=== PATIENT | male | born 1950 | race Caucasian/White ===

== ENCOUNTER 2017-07-04 20:21 | Inpatient (IN) | payer MEDICARE ==
[~2017-07-04] VITALS: Ht 193 cm; Wt 101.8 kg
[~2017-07-04 20:21] MED LIST: BUDE10.2 IH; HYDR-4064 PO; MONT10TA24 PO; combivent IH
[2017-07-04 20:59] LABS: BASOPHILS % (AUTO) 0.6 % (0.0-5.0); EOSINOPHILS % (AUTO) 1.9 % (0.0-8.0); HEMATOCRIT 36.8 % (42-54); LYMPHOCYTES % (AUTO) 13.9 % (21.0-51.0); MEAN CORPUSCULAR HEMOGLOBIN 31.6 pg (27.0-33.0); MEAN CORPUSCULAR HGB CONC 33.8 g/dL (32.0-36.0); MEAN CORPUSCULAR VOLUME 93.5 fL (79-99); MONOCYTES % (AUTO) 11.9 % (3.0-13.0); NEUTROPHILS % (AUTO) 71.7 % (40.0-77.0); PLATELET COUNT (AUTO) 306 K/uL (130-400); RED BLOOD CELL COUNT(AUTO) 3.93 MIL/uL (4.50-6.20); RED CELL DISTRIBUTION WIDTH 13.8 % (11.0-15.5); WHITE BLOOD COUNT (AUTO) 6.6 K/uL (4.8-10.8)
[2017-07-04] MEDS ORDERED: IPRATROPIUM/ALBUTEROL SULFATE 3 ML SOLUTION IH ONE (21:11)
[2017-07-04 21:12] LABS: INR 0.93 (0.85-1.15); PARTIAL THROMBOPLASTIN TIME 31.2 SEC (26.3-35.5); PROTHROMBIN TIME 9.8 SEC (9.6-11.6)
[2017-07-04 21:24] LABS: ALANINE AMINOTRANSFERASE 29 U/L (12-78); ALBUMIN 2.5 g/dL (3.5-5.0); ASPARTATE AMINOTRANSFERASE 25 U/L (10-37); BILIRUBIN,TOTAL 0.4 mg/dL (0.2-1.0); CARBON DIOXIDE 27 mmol/L (21-32); CREATINE KINASE MB < 0.5 ng/mL (0.5-3.6); CREATINE KINASE, TOTAL 45 U/L (21-232); CREATININE 0.9 mg/dL (0.5-1.5); GLOMERULAR FILTR. RATE CALC 89 mL/min (>60); GLUCOSE,RANDOM 112 mg/dL (70-105); SODIUM SERUM 125 mmol/L (136-145); TOTAL PROTEIN, SERUM 6.2 g/dL (6.0-8.3); UREA NITROGEN, BLOOD 9 mg/dL (7-18)
[2017-07-04 21:26] LABS: CHLORIDE 89 mmol/L (101-111)
[2017-07-04 21:38] LABS: B-TYPE NATRIURETIC PEPTIDE 45 pg/mL (0-100)
[2017-07-04 21:51] LABS: APPEARANCE,URINE Clear (CLEAR); BILIRUBIN,URINE Negative (NEGATIVE); COLOR,URINE Yellow (YELLOW); GLUCOSE, URINE (UA) Negative (NEGATIVE); KETONES,URINE Negative (NEGATIVE); LEUKOCYTE ESTERASE ,URINE Negative (NEGATIVE); NITRATE,URINE Negative (NEGATIVE); OCCULT BLOOD,URINE Negative (NEGATIVE); PROTEIN,URINE Negative (NEGATIVE); UROBILINOGEN,URINE 0.2 mg/dL (0.2-1.0)
[2017-07-04] MEDS ORDERED: LEVOFLOXACIN 500 MG TABLET ONE (21:59)
[2017-07-04] MEDS ORDERED: CEFTRIAXONE SODIUM 1 GM ONE (22:00)
[2017-07-04] MEDS ORDERED: LIDOCAINE HCL-MPF 1% 2ML VIAL IJ PRN (22:45)
[2017-07-04] MEDS ORDERED: POTASSIUM CHLORIDE 20MEQ/100ML 100 ML IV PRN (22:45)
[2017-07-04] MEDS ORDERED: POTASSIUM CHLORIDE 10% ELIXIR 20 MEQ/15 ML UDCUP PO PRN (22:45)
[2017-07-04] MEDS ORDERED: POTASSIUM CHLORIDE 20 MEQ ERTAB PO PRN (22:45)
[2017-07-04] MEDS ORDERED: CLONIDINE HCL 0.1 MG TABLET PO PRN (23:00)
[2017-07-04] MEDS ORDERED: ACETAMINOPHEN 325 MG TAB PO PRN ×2 (23:00)
[2017-07-04] MEDS ORDERED: NITROGLYCERIN 0.4 MG SL TAB SL PRN (23:00)
[2017-07-04] MEDS ORDERED: GUAIFENESIN-DM 200/20 MG 10 ML PO PRN (23:00)
[2017-07-05] MEDS ORDERED: IPRATROPIUM/ALBUTEROL SULFATE 3 ML SOLUTION IH SCH
[2017-07-05] MEDS: IPRATROPIUM/ALBUTEROL SULFATE 3 ML SOLUTION IH SCH ×6 (02:00→21:54)
[2017-07-05] MEDS ORDERED: SODIUM CHLORIDE 0.9% 1000ML 1,000 ML IV ONE (02:29)
[2017-07-05] MEDS ORDERED: METHYLPREDNISOLONE SOD SUCC 40MG/ML 1ML ONE (02:29)
[2017-07-05 05:05] LABS: HEMATOCRIT 34.7 % (42-54); MEAN CORPUSCULAR HEMOGLOBIN 31.9 pg (27.0-33.0); MEAN CORPUSCULAR HGB CONC 34.2 g/dL (32.0-36.0); MEAN CORPUSCULAR VOLUME 93.1 fL (79-99); PLATELET COUNT (AUTO) 276 K/uL (130-400); RED BLOOD CELL COUNT(AUTO) 3.73 MIL/uL (4.50-6.20); RED CELL DISTRIBUTION WIDTH 13.7 % (11.0-15.5); WHITE BLOOD COUNT (AUTO) 5.9 K/uL (4.8-10.8)
[2017-07-05 05:12] LABS: CREATININE 0.8 mg/dL (0.5-1.5); POTASSIUM 4.3 mmol/L (3.5-5.1)
[2017-07-05] MEDS ORDERED: IPRATROPIUM/ALBUTEROL SULFATE 3 ML SOLUTION IH ONE (06:10)
[2017-07-05] MEDS: FAMOTIDINE 20MG TAB 20 MG TAB PO SCH ×2 (09:00→20:52)
[2017-07-05 11:38] VITALS: BP 119/81
[2017-07-05] MEDS: SODIUM CHLORIDE 0.9% 1000ML 1,000 ML IV SCH ×2 (12:00→20:57)
[2017-07-05] MEDS ORDERED: METHYLPREDNISOLONE SOD SUCC 40MG/ML 1ML IVP SCH (14:00)
[2017-07-05] MEDS: ACETYLCYSTEINE 20% 200MG/ML 4ML VIAL IH SCH ×2 (14:21→21:54)
[2017-07-05 16:00] VITALS: BP 120/75
[2017-07-05 17:13] LABS: TOTAL PROTEIN, SERUM 7.4 g/dL (6.0-8.3)
[2017-07-05] MEDS ORDERED: COMBIVENT IH PRN (17:45)
[2017-07-05] MEDS ORDERED: HYDROCODONE/ACETAMINOPHEN 7.5/325 MG TAB PO PRN (17:45)
[2017-07-05] MEDS ORDERED: FLUT9.9S16 NS (17:50)
[2017-07-05] MEDS ORDERED: NICO-704 TD (17:50)
[2017-07-05 18:33] LABS: APPEARANCE BODY FLUID CLOUDY (CLEAR); BODY FLUID WBC 160 /cu. mm.; COLOR,BODY FLUID ORANGE (LT YELLOW); SPECIMENTYPE,BODY FLUID PLEURAL; TOTAL VOLUME,BODY FLUID 1300 mL
[2017-07-05 18:34] LABS: BODY FLUID RBC 10900 /cu. mm.
[2017-07-05] MEDS: CEFTRIAXONE SODIUM 1 GM IV SCH (19:09)
[2017-07-05 19:17] LABS: BF EOSINOPHIL 29 %; BF LYMPHOCYTE 23 %; BF MONOCYTE 2 %; BF OTHER CELLS 12
[2017-07-05 19:38] VITALS: BP 122/70
[2017-07-05] MEDS: LEVOFLOXACIN 500 MG/D5W 100 ML 100 ML IV SCH (20:52)
[2017-07-05] MEDS: MONTELUKAST SODIUM 10 MG TAB PO SCH (20:52)
[2017-07-05] MEDS ORDERED: CEFTRIAXONE 1GM/D5W 50ML 50 ML IV SCH (21:00)
[2017-07-05] MEDS ORDERED: SUB PER P&T FOR ASTHMA OR COPD RECOMMENDATION IH SCH (21:00)
[2017-07-05] MEDS: METHYLPREDNISOLONE SOD SUCC 40MG/ML 1ML IVP SCH (22:24)
[2017-07-05 23:08] VITALS: BP 124/69
[2017-07-05] MEDS: ZOLPIDEM TARTRATE 5 MG TAB PO PRN (23:33)
[2017-07-06] MEDS: IPRATROPIUM/ALBUTEROL SULFATE 3 ML SOLUTION IH SCH ×6 (02:01→22:15)
[2017-07-06 03:29] VITALS: BP 125/61
[2017-07-06 05:21] LABS: HEMATOCRIT 33.7 % (42-54); MEAN CORPUSCULAR HEMOGLOBIN 31.6 pg (27.0-33.0); MEAN CORPUSCULAR VOLUME 92.8 fL (79-99); PLATELET COUNT (AUTO) 290 K/uL (130-400); RED BLOOD CELL COUNT(AUTO) 3.63 MIL/uL (4.50-6.20); RED CELL DISTRIBUTION WIDTH 13.9 % (11.0-15.5); WHITE BLOOD COUNT (AUTO) 10.1 K/uL (4.8-10.8)
[2017-07-06 05:25] LABS: CREATININE 0.9 mg/dL (0.5-1.5)
[2017-07-06] MEDS: METHYLPREDNISOLONE SOD SUCC 40MG/ML 1ML IVP SCH ×3 (05:59→21:00)
[2017-07-06] MEDS: ACETYLCYSTEINE 20% 200MG/ML 4ML VIAL IH SCH (06:02)
[2017-07-06] MEDS: BUDESONIDE 0.5 MG/2 ML INH IH SCH ×2 (06:30→19:41)
[2017-07-06 08:00] VITALS: BP_SYST 119; BP_SYST 136; BP_DIAS 69; BP_DIAS 91
[2017-07-06] MEDS: LACTULOSE 20 GM/30 ML UDCUP PO PRN (09:29)
[2017-07-06] MEDS: FAMOTIDINE 20MG TAB 20 MG TAB PO SCH ×2 (09:29→20:59)
[2017-07-06] MEDS: NICOTINE 21 MG/ 24 HR PATCH TD SCH (09:29)
[2017-07-06] MEDS: FLUTICASONE PROPIONATE 50MCG/SPRAY 16 GM BOTTLE NS SCH (09:35)
[2017-07-06 11:00] VITALS: BP 126/76
[2017-07-06] MEDS ORDERED: KETOROLAC TROMETHAMINE 15MG/ML IV PRN (12:30)
[2017-07-06] MEDS ORDERED: MAGNESIUM HYDROXIDE 30 ML/UDCUP ONE (14:22)
[2017-07-06] MEDS: MAGNESIUM HYDROXIDE 30 ML/UDCUP PO SCH (15:45)
[2017-07-06 16:00] VITALS: BP 141/74
[2017-07-06] MEDS: SODIUM CHLORIDE 0.9% 1000ML 1,000 ML IV SCH (18:00)
[2017-07-06] MEDS: CEFTRIAXONE SODIUM 1 GM IV SCH (18:32)
[2017-07-06 19:15] VITALS: BP 141/78
[2017-07-06] MEDS: MONTELUKAST SODIUM 10 MG TAB PO SCH (20:59)
[2017-07-06] MEDS: LEVOFLOXACIN 500 MG/D5W 100 ML 100 ML IV SCH (21:00)
[2017-07-06] MEDS: ZOLPIDEM TARTRATE 5 MG TAB PO PRN (22:30)
[2017-07-06 23:15] VITALS: BP 111/68
[2017-07-07] MEDS: IPRATROPIUM/ALBUTEROL SULFATE 3 ML SOLUTION IH SCH ×6 (02:29→22:41)
[2017-07-07 03:30] VITALS: BP 116/68
[2017-07-07 05:06] LABS: HEMATOCRIT 34.5 % (42-54); MEAN CORPUSCULAR HEMOGLOBIN 31.6 pg (27.0-33.0); MEAN CORPUSCULAR HGB CONC 33.6 g/dL (32.0-36.0); MEAN CORPUSCULAR VOLUME 94.2 fL (79-99); PLATELET COUNT (AUTO) 285 K/uL (130-400); RED BLOOD CELL COUNT(AUTO) 3.66 MIL/uL (4.50-6.20); RED CELL DISTRIBUTION WIDTH 13.9 % (11.0-15.5); WHITE BLOOD COUNT (AUTO) 10.8 K/uL (4.8-10.8)
[2017-07-07 05:21] LABS: CREATININE 0.8 mg/dL (0.5-1.5); POTASSIUM 4.4 mmol/L (3.5-5.1)
[2017-07-07] MEDS: BUDESONIDE 0.5 MG/2 ML INH IH SCH ×2 (06:01→17:43)
[2017-07-07] MEDS: METHYLPREDNISOLONE SOD SUCC 40MG/ML 1ML IVP SCH ×3 (06:16→21:25)
[2017-07-07] MEDS: LACTULOSE 20 GM/30 ML UDCUP PO PRN ×3 (06:16→15:23)
[2017-07-07 08:00] VITALS: BP 115/67
[2017-07-07] MEDS: FAMOTIDINE 20MG TAB 20 MG TAB PO SCH (10:58)
[2017-07-07] MEDS: NICOTINE 21 MG/ 24 HR PATCH TD SCH (10:58)
[2017-07-07] MEDS: SODIUM CHLORIDE 0.9% 1000ML 1,000 ML IV SCH (10:59)
[2017-07-07] MEDS: FLUTICASONE PROPIONATE 50MCG/SPRAY 16 GM BOTTLE NS SCH (10:59)
[2017-07-07] MEDS: ENOXAPARIN SODIUM 40 MG/0.4 ML SYRINGE SQ SCH (11:01)
[2017-07-07 11:58] VITALS: BP 121/73
[2017-07-07] MEDS: SIMETHICONE 80 MG TAB.CHEW PO SCH ×3 (15:11→21:25)
[2017-07-07 16:00] VITALS: BP 124/72
[2017-07-07] MEDS: MAGNESIUM HYDROXIDE 30 ML/UDCUP PO SCH (17:12)
[2017-07-07] MEDS: CEFTRIAXONE SODIUM 1 GM IV SCH (17:20)
[2017-07-07 20:00] VITALS: BP 132/87
[2017-07-07] MEDS: LEVOFLOXACIN 500 MG/D5W 100 ML 100 ML IV SCH (21:25)
[2017-07-07] MEDS: MONTELUKAST SODIUM 10 MG TAB PO SCH (21:28)
[2017-07-07] MEDS: ZOLPIDEM TARTRATE 5 MG TAB PO PRN (23:21)
[2017-07-08] VITALS: BP 136/74
[2017-07-08] MEDS: IPRATROPIUM/ALBUTEROL SULFATE 3 ML SOLUTION IH SCH ×3 (01:36→09:52)
[2017-07-08 04:00] VITALS: BP 121/69
[2017-07-08] MEDS: METHYLPREDNISOLONE SOD SUCC 40MG/ML 1ML IVP SCH (05:52)
[2017-07-08 05:53] LABS: HEMATOCRIT 34.1 % (42-54); MEAN CORPUSCULAR HEMOGLOBIN 32.2 pg (27.0-33.0); MEAN CORPUSCULAR HGB CONC 34.4 g/dL (32.0-36.0); MEAN CORPUSCULAR VOLUME 93.7 fL (79-99); PLATELET COUNT (AUTO) 329 K/uL (130-400); RED BLOOD CELL COUNT(AUTO) 3.64 MIL/uL (4.50-6.20); RED CELL DISTRIBUTION WIDTH 14.1 % (11.0-15.5); WHITE BLOOD COUNT (AUTO) 9.4 K/uL (4.8-10.8)
[2017-07-08 06:07] LABS: CREATININE 0.9 mg/dL (0.5-1.5); POTASSIUM 4.2 mmol/L (3.5-5.1)
[2017-07-08] MEDS: BUDESONIDE 0.5 MG/2 ML INH IH SCH (06:08)
[2017-07-08 07:55] VITALS: BP 105/70
[2017-07-08] MEDS: FLUTICASONE PROPIONATE 50MCG/SPRAY 16 GM BOTTLE NS SCH (09:00)
[2017-07-08] MEDS: ENOXAPARIN SODIUM 40 MG/0.4 ML SYRINGE SQ SCH (09:00)
[2017-07-08] MEDS: SIMETHICONE 80 MG TAB.CHEW PO SCH (09:09)
[2017-07-08] MEDS: NICOTINE 21 MG/ 24 HR PATCH TD SCH (09:11)
[2017-07-08 11:52] VITALS: BP 134/89
== END 2017-07-08 13:20 | disposition home or self-care (01) | DRG 190 ==
LOC: EDH 20:21 → EDHIP 22:16 → 4CH 07-05 11:04
PROVIDERS: ADMIT Internal Medicine; ATTEND Internal Medicine
PROC: 0W9B3ZZ Drainage of Left Pleural Cavity, Percutaneous Approach (ICD-10-PCS; principal; 2017-07-05)
DX: J44.0 Chronic obstructive pulmonary disease with (acute) lower respiratory infection (principal); J18.9 Pneumonia, unspecified organism; J91.8 Pleural effusion in other conditions classified elsewhere; E87.8 Other disorders of electrolyte and fluid balance, not elsewhere classified; E87.1 Hypo-osmolality and hyponatremia; J44.1 Chronic obstructive pulmonary disease with (acute) exacerbation; E86.0 Dehydration; F17.210 Nicotine dependence, cigarettes, uncomplicated; I10 Essential (primary) hypertension; Z96.649 Presence of unspecified artificial hip joint; Z96.659 Presence of unspecified artificial knee joint; Z88.8 Allergy status to other drugs, medicaments and biological substances; Z98.49 Cataract extraction status, unspecified eye
CPT/HCPCS: 32555; 36415; 71045; 71250; 80048; 80053; 81003; 82550; 82553; 82945; 82948; 83605; 83615; 83880; 83986; 84155; 84157; 84484; 85025; 85027; 85610; 85730; 87040; 87071; 87103; 87116; 87205; 87206; 87804; 88342; 89051; 93005; 94640; 94664; A4218; C1729; J0696; J1650; J1885; J1956; J2920; J7030; J7608

== ENCOUNTER → 2017-08-05 | Outpatient (CLI) | payer MEDICARE ==
[~2017-08-05] MED LIST changes: +FLUT9.9S16 NS; +NICO-704 TD
[2017-08-05 13:58] LABS: INR 0.92 (0.85-1.15); PARTIAL THROMBOPLASTIN TIME 29.6 SEC (26.3-35.5); PROTHROMBIN TIME 9.7 SEC (9.6-11.6)
== END | disposition home or self-care (01) ==
LOC: LAB 13:05
PROVIDERS: ATTEND Internal Medicine
DX: R91.8 Other nonspecific abnormal finding of lung field (principal); R79.1 Abnormal coagulation profile
CPT/HCPCS: 36415; 85610; 85730

== ENCOUNTER 2017-08-07 07:58 | Inpatient (IN) | payer MEDICARE ==
[~2017-08-07] VITALS: Ht 193 cm; Wt 98.6 kg
[2017-08-07] VITALS (16 sets, daily range): BP systolic 91–127; BP diastolic 67–81
[2017-08-07 08:19] LABS: BASOPHILS % (AUTO) 1.2 % (0.0-5.0); EOSINOPHILS % (AUTO) 4.3 % (0.0-8.0); HEMATOCRIT 41.8 % (42-54); LYMPHOCYTES % (AUTO) 32.3 % (21.0-51.0); MEAN CORPUSCULAR HEMOGLOBIN 30.6 pg (27.0-33.0); MEAN CORPUSCULAR HGB CONC 33.7 g/dL (32.0-36.0); MEAN CORPUSCULAR VOLUME 90.8 fL (79-99); MONOCYTES % (AUTO) 10.9 % (3.0-13.0); NEUTROPHILS % (AUTO) 51.3 % (40.0-77.0); PLATELET COUNT (AUTO) 202 K/uL (130-400); RED CELL DISTRIBUTION WIDTH 14.9 % (11.0-15.5); WHITE BLOOD COUNT (AUTO) 5.5 K/uL (4.8-10.8)
[2017-08-07 08:38] LABS: INR 0.91 (0.85-1.15); PARTIAL THROMBOPLASTIN TIME 29.7 SEC (26.3-35.5); PROTHROMBIN TIME 9.6 SEC (9.6-11.6)
[2017-08-07] MEDS ORDERED: SODIUM CHLORIDE 0.9% 1000ML 1,000 ML IV ONE (08:45)
[2017-08-07] MEDS ORDERED: FENTANYL CITRATE PF 50 MCG/1 ML 2ML VIAL ONE (09:29)
[2017-08-07] MEDS ORDERED: LIDOCAINE HCL 1% 20 ML VIAL ONE (09:29)
[2017-08-07] MEDS ORDERED: MIDAZOLAM HCL 1 MG/ML 2ML VIAL ONE (09:29)
[2017-08-07] MEDS ORDERED: MORPHINE SULFATE 5 MG/ML VIAL ONE (09:43)
[2017-08-07] MEDS ORDERED: MORPHINE SULFATE 10 MG/ML 1ML SYG ONE (10:37)
[2017-08-07] MEDS ORDERED: ACETAMINOPHEN 325 MG TAB ONE (17:15)
[2017-08-07] MEDS ORDERED: HYDR-4064 PO (17:36)
[2017-08-07] MEDS ORDERED: ACETAMINOPHEN 325 MG TAB PO PRN (18:00)
[2017-08-07] MEDS ORDERED: POTASSIUM CHLORIDE 20 MEQ ERTAB PO PRN (18:00)
[2017-08-07] MEDS ORDERED: POTASSIUM CHLORIDE 10% ELIXIR 20 MEQ/15 ML UDCUP PO PRN (18:00)
[2017-08-07] MEDS ORDERED: POTASSIUM CHLORIDE 20MEQ/100ML 100 ML IV PRN (18:00)
[2017-08-07] MEDS ORDERED: LIDOCAINE HCL-MPF 1% 2ML VIAL IJ PRN (18:00)
[2017-08-07] MEDS: HYDROMORPHONE HCL 0.5 MG/0.5 ML ML IVP PRN (22:15)
[2017-08-08] VITALS (7 sets, daily range): BP systolic 114–125; BP diastolic 63–74
[2017-08-08 05:32] LABS: BASOPHILS % (AUTO) 0.9 % (0.0-5.0); EOSINOPHILS % (AUTO) 3.4 % (0.0-8.0); HEMATOCRIT 37.3 % (42-54); LYMPHOCYTES % (AUTO) 25.7 % (21.0-51.0); MEAN CORPUSCULAR HEMOGLOBIN 31.2 pg (27.0-33.0); MEAN CORPUSCULAR HGB CONC 34.3 g/dL (32.0-36.0); MONOCYTES % (AUTO) 9.6 % (3.0-13.0); NEUTROPHILS % (AUTO) 60.4 % (40.0-77.0); NUCLEATED RED BLOOD CELLS 0.1 % (0.0-0.19); PLATELET COUNT (AUTO) 197 K/uL (130-400); RED BLOOD CELL COUNT(AUTO) 4.09 MIL/uL (4.50-6.20); RED CELL DISTRIBUTION WIDTH 14.5 % (11.0-15.5); WHITE BLOOD COUNT (AUTO) 5.2 K/uL (4.8-10.8)
[2017-08-08 05:44] LABS: ALBUMIN 2.9 g/dL (3.5-5.0); BILIRUBIN,TOTAL 0.5 mg/dL (0.2-1.0); CREATININE 0.9 mg/dL (0.5-1.5); POTASSIUM 3.8 mmol/L (3.5-5.1); TOTAL PROTEIN, SERUM 6.3 g/dL (6.0-8.3)
[2017-08-08] MEDS: HYDROMORPHONE HCL 0.5 MG/0.5 ML ML IVP PRN ×3 (11:29→23:44)
[2017-08-08] MEDS ORDERED: NICOTINE 14 MG/ 24 HR PATCH TD SCH (16:11)
[2017-08-08] MEDS: IPRATROPIUM/ALBUTEROL SULFATE 3 ML SOLUTION IH SCH ×2 (19:00→23:56)
[2017-08-08] MEDS: MONTELUKAST SODIUM 10 MG TAB PO SCH (19:55)
[2017-08-08] MEDS: HYDROCODONE/ACETAMINOPHEN 7.5/325 MG TAB PO SCH (21:00)
[2017-08-09] MEDS: HYDROCODONE/ACETAMINOPHEN 7.5/325 MG TAB PO SCH ×2 (02:51→20:51)
[2017-08-09 03:26] VITALS: BP 116/67
[2017-08-09] MEDS: IPRATROPIUM/ALBUTEROL SULFATE 3 ML SOLUTION IH SCH ×4 (06:12→23:45)
[2017-08-09] MEDS: HYDROMORPHONE HCL 0.5 MG/0.5 ML ML IVP PRN ×4 (06:18→20:57)
[2017-08-09 08:00] VITALS: BP 124/72
[2017-08-09] MEDS ORDERED: NICOTINE 14 MG/ 24 HR PATCH TD SCH (09:00)
[2017-08-09] MEDS ORDERED: FLUTICASONE PROPIONATE 50MCG/SPRAY 16 GM BOTTLE NS SCH (09:00)
[2017-08-09 12:24] VITALS: BP 134/69
[2017-08-09 16:00] VITALS: BP 124/66
[2017-08-09] MEDS: ACETYLCYSTEINE 10% 100MG/ML 4ML VIAL IH SCH ×2 (19:56→23:46)
[2017-08-09 20:05] VITALS: BP 125/76
[2017-08-09] MEDS: MONTELUKAST SODIUM 10 MG TAB PO SCH (20:50)
[2017-08-09] MEDS ORDERED: MAGNESIUM HYDROXIDE 30 ML/UDCUP ONE (22:40)
[2017-08-09] MEDS ORDERED: MAGNESIUM HYDROXIDE 30 ML/UDCUP PO PRN (22:45)
[2017-08-09 23:25] VITALS: BP 120/73
[2017-08-10 03:12] VITALS: BP 112/70
[2017-08-10] MEDS: ACETYLCYSTEINE 10% 100MG/ML 4ML VIAL IH SCH ×2 (06:31→11:09)
[2017-08-10] MEDS: IPRATROPIUM/ALBUTEROL SULFATE 3 ML SOLUTION IH SCH ×2 (06:31→11:08)
[2017-08-10 08:00] VITALS: BP 114/70
[2017-08-10] MEDS: HYDROCODONE/ACETAMINOPHEN 7.5/325 MG TAB PO SCH (08:09)
[2017-08-10] MEDS: HYDROMORPHONE HCL 0.5 MG/0.5 ML ML IVP PRN (08:09)
== END 2017-08-10 12:31 | disposition home or self-care (01) | DRG 180 ==
LOC: DAH 07:58 → DAHIP 07:59 → EDSTATUS 08:00 → 2AH 18:33
PROVIDERS: ADMIT Internal Medicine; ATTEND Internal Medicine
PROC: 0BDK8ZX Extraction of Right Lung, Via Natural or Artificial Opening Endoscopic, Diagnostic (ICD-10-PCS; principal; 2017-08-06)
DX: C34.90 Malignant neoplasm of unspecified part of unspecified bronchus or lung (principal); J96.21 Acute and chronic respiratory failure with hypoxia; Z99.81 Dependence on supplemental oxygen; J93.9 Pneumothorax, unspecified; J44.9 Chronic obstructive pulmonary disease, unspecified; M19.90 Unspecified osteoarthritis, unspecified site; F17.210 Nicotine dependence, cigarettes, uncomplicated; G89.4 Chronic pain syndrome; Z96.619 Presence of unspecified artificial shoulder joint; Z96.659 Presence of unspecified artificial knee joint; Z87.01 Personal history of pneumonia (recurrent); Z88.8 Allergy status to other drugs, medicaments and biological substances; Z83.3 Family history of diabetes mellitus; Z82.49 Family history of ischemic heart disease and other diseases of the circulatory system
CPT/HCPCS: 32405; 36415; 71045; 71046; 77012; 80053; 85025; 85610; 85730; 88305; 94640; 94664; A7048; J1170; J2250; J2270; J3010; J7030; J7608

== ENCOUNTER → 2017-08-14 | Outpatient (CLI) | payer MEDICARE | END | disposition home or self-care (01) | LOC: RAH 12:05 | PROVIDERS: ATTEND Internal Medicine | DX: J44.9 Chronic obstructive pulmonary disease, unspecified (principal); J18.9 Pneumonia, unspecified organism; J90 Pleural effusion, not elsewhere classified; R91.1 Solitary pulmonary nodule | CPT/HCPCS: 71046 ==

== ENCOUNTER → 2017-12-12 | Outpatient (CLI) | payer MEDICARE ==
[~2017-12-12] MED LIST changes: +GADOBENATE DIMEGLUMINE 20 ML IV ONE
== END | disposition home or self-care (01) ==
LOC: RAH 08:36
PROVIDERS: ATTEND Internal Medicine Hematology & Oncology
DX: M54.6 Pain in thoracic spine (principal)
CPT/HCPCS: 72157; A9577

== ENCOUNTER 2018-11-17 12:42 | Inpatient (IN) | payer MEDICARE ==
[~2018-11-17] VITALS: Ht 193 cm; Wt 100.0 kg
[~2018-11-17 12:42] MED LIST changes: +CHOL50004 PO; -GADOBENATE DIMEGLUMINE 20 ML IV ONE; +LACT1CAP PO; +NICO-649 TD; -NICO-704 TD; -combivent IH
[2018-11-17] MEDS ORDERED: FUROSEMIDE 10 MG/ML 4ML VIAL ONE (13:34)
[2018-11-17 13:39] LABS: BASOPHILS % (AUTO) 0.2 % (0.0-5.0); HEMATOCRIT 34.2 % (42-54); LYMPHOCYTES % (AUTO) 8.2 % (21.0-51.0); MEAN CORPUSCULAR HEMOGLOBIN 34.1 pg (27.0-33.0); MEAN CORPUSCULAR HGB CONC 33.7 g/dL (32.0-36.0); MEAN CORPUSCULAR VOLUME 101.3 fL (79-99); MONOCYTES % (AUTO) 6.2 % (3.0-13.0); NEUTROPHILS % (AUTO) 85.4 % (40.0-77.0); NUCLEATED RED BLOOD CELLS 0.1 % (0.0-0.19); PLATELET COUNT (AUTO) 147 K/uL (130-400); RED BLOOD CELL COUNT(AUTO) 3.38 MIL/uL (4.50-6.20); RED CELL DISTRIBUTION WIDTH 16.7 % (11.0-15.5)
[2018-11-17 13:52] LABS: INR 0.92 (0.85-1.15); PARTIAL THROMBOPLASTIN TIME 27.3 SEC (26.3-35.5); PROTHROMBIN TIME 9.7 SEC (9.6-11.6)
[2018-11-17 14:01] LABS: B-TYPE NATRIURETIC PEPTIDE 617 pg/mL (0-100)
[2018-11-17 14:04] LABS: CREATININE 1.3 mg/dL (0.5-1.5); POTASSIUM 3.6 mmol/L (3.5-5.1)
[2018-11-17 14:08] LABS: BILIRUBIN,TOTAL 0.4 mg/dL (0.2-1.0); TOTAL PROTEIN, SERUM 6.1 g/dL (6.0-8.3)
[2018-11-17 16:08] VITALS: BP 135/84
--- NOTE | 2018-11-17 16:15 | NUR ---
ARRIVAL TO FLOOR PT IS AAOX4 DENIES CP DENIES SOB WHILE AT REST. ARRIVED WITH ORDERS, FAMILY IS AT BEDSIDE, CALL LIGHT WITHIN REACH.
[2018-11-17] MEDS ORDERED: ALBUTEROL IH (16:40)
[2018-11-17] MEDS ORDERED: LANS30CA53 PO (16:40)
[2018-11-17] MEDS ORDERED: BENZ-51 PO (16:40)
[2018-11-17] MEDS ORDERED: BUDE180H IH (16:40)
[2018-11-17] MEDS ORDERED: ALBUTEROL NEB IH (16:40)
[2018-11-17] MEDS ORDERED: IPRATROPIUM IH (16:40)
[2018-11-17] MEDS ORDERED: PRED5TAB PO (16:40)
[2018-11-17] MEDS ORDERED: MAGNESIUM HYDROXIDE 30 ML/UDCUP PO PRN (17:15)
[2018-11-17] MEDS ORDERED: POTASSIUM CHLORIDE 20MEQ/100ML 100 ML IV PRN (17:15)
[2018-11-17] MEDS ORDERED: POTASSIUM CHLORIDE 10% ELIXIR 20 MEQ/15 ML UDCUP PO PRN (17:15)
[2018-11-17] MEDS ORDERED: LIDOCAINE HCL-MPF 1% 2ML VIAL IJ PRN (17:15)
[2018-11-17] MEDS: MILRINONE-D5W 20 MG/100 ML 100 ML IV SCH (17:25)
[2018-11-17 20:03] VITALS: BP 113/54
[2018-11-17] MEDS: DOCUSATE SODIUM 100 MG CAP PO SCH (20:30)
[2018-11-17] MEDS: FUROSEMIDE 10 MG/ML 4ML VIAL IVP SCH (20:30)
[2018-11-17] MEDS: CARVEDILOL 3.125 MG TABLET PO SCH (21:00)
--- NOTE | 2018-11-17 21:45 | NUR ---
PT HR 140'S. PT IS AMBULATING TO RESTROOM. ONCE GETTING TO BED, TENDED DOWN TO 90'S-100S. STATES MINIMAL SOB. NO PAIN.
[2018-11-17 23:49] VITALS: BP 92/58
--- NOTE | 2018-11-18 | NUR ---
PT CONTINUES ON PRIMACOR DRIP AT 7.87 ML/HR. BLOOD PRESSURE HAS BEEN DECREASED. DID NOT ADMINISTER COREG. NASAL CANNULA AT 2LPM. LAST BM 11/17/18. LASIX HAS BEEN GIVEN. PT VOIDING. HAS HYDROCELE TO SCROTUM AREA. PREFERS TO VOID IN TOILET. USING URINAL WHEN ABLE TO.
[2018-11-18] MEDS: MILRINONE-D5W 20 MG/100 ML 100 ML IV SCH (03:06)
[2018-11-18 03:30] VITALS: BP 105/73
[2018-11-18 04:12] LABS: POTASSIUM 3.3 mmol/L (3.5-5.1)
[2018-11-18] MEDS: POTASSIUM CHLORIDE 20 MEQ ERTAB PO PRN ×3 (04:26→07:10)
[2018-11-18] MEDS: DOCUSATE SODIUM 100 MG CAP PO SCH ×2 (07:10→19:58)
[2018-11-18] MEDS: CARVEDILOL 3.125 MG TABLET PO SCH ×2 (07:11→19:59)
[2018-11-18] MEDS: FUROSEMIDE 10 MG/ML 4ML VIAL IVP SCH ×2 (07:11→19:58)
[2018-11-18 07:38] VITALS: BP 108/72
--- NOTE | 2018-11-18 08:00 | NUR ---
ASSESSMENT PT IS AAOX4 DENIES CP DENIES SOB DENIES NV, RESTING IN BED. NO COMPLAINTS. CURRENTLY CONTINUES ON PRIMAOR GTT ORDERED. DR ROBISON ROUNDED, SAW PATIENT, CALL LIGHT WITHIN REACH.
--- NOTE | 2018-11-18 09:37 | NUR ---
LIVIA Bah met pt who lives with Tori [phone]. Pt states assists with ALDs as needed, stand by assist with bathing. Pt has pilo w/vania, in shower,nebulizer, O2 from [facility] and ramp at home. Pt has no in home care services. Plan is home at hi Addendum: 11/18/18 at 0939 by SAVANA SCHULTE Amended: Links added.
[2018-11-18 11:19] VITALS: BP 133/75
[2018-11-18] MEDS ORDERED: BENZONATATE 100 MG CAPSULE PO PRN (12:15)
[2018-11-18] MEDS ORDERED: ALBUTEROL SULFATE 0.083% 2.5 MG/3 ML INH IH ONE (14:46)
[2018-11-18] MEDS ORDERED: MAGNESIUM HYDROXIDE 30 ML/UDCUP PO PRN (16:00)
--- NOTE | 2018-11-18 16:02 | NUR ---
RD Notification Pt with Acute CHF, fluid retention. Pt tolerating Heart Healthy diet, 1200mL(500mL dietary), with no report of GI distress and PO intake at 75-100%. Pt LBM 11/17/18. Pt with complaints of today's lunch. Food preferences obtained. Pt monitored labs: K 3.3, Alb 3.0. Pt with increased protein needs related to R. Jaquez decubitus ulcer, however pt refusal of protein supplementation. RD to continue to monitor. Please notify RD as nutritional concerns arise. Thank you. Addendum: 11/18/18 at [address] RD Amended: Links added.
[2018-11-18 16:04] VITALS: BP 118/68
[2018-11-18] MEDS: ALBUTEROL SULFATE 0.083% 2.5 MG/3 ML INH IH SCH ×2 (18:26→23:19)
[2018-11-18] MEDS: BUDESONIDE 0.5 MG/2 ML INH IH SCH (18:37)
[2018-11-18 19:53] VITALS: BP 103/75
[2018-11-18] MEDS: LACTOBACILLUS RHAMNOSUS GG 1 EACH CAP.SPRINK PO SCH (19:58)
--- NOTE | 2018-11-18 20:30 | NUR ---
PT GIVEN M.O.M, STATES HAD NOT HAD BM AND IS USED TO TAKING IT ON A DAILY BASIS. PT STATES NO PAIN. ON MILRINONE DRIP. 7.57ML/HR. STATES FEELING MUCH BETTER TODAY. ABLE TO AMBULATE. ON NASAL CANNULA 2LPM.
[2018-11-18] MEDS ORDERED: BUDESONIDE 180 MCG IH SCH (21:00)
[2018-11-18 23:24] VITALS: BP 114/66
--- NOTE | 2018-11-19 03:00 | NUR ---
PICC LINE DRESSING CHANGE COMPLETE. PT TOLERATED WELL. STERILE TECHNIQUE. PICC LINE PATENT.
[2018-11-19 03:42] VITALS: BP 97/73
[2018-11-19 03:48] LABS: CREATININE 0.9 mg/dL (0.5-1.5); POTASSIUM 3.4 mmol/L (3.5-5.1)
[2018-11-19] MEDS: POTASSIUM CHLORIDE 20 MEQ ERTAB PO PRN ×4 (04:35→16:17)
[2018-11-19] MEDS: ALBUTEROL SULFATE 0.083% 2.5 MG/3 ML INH IH SCH ×4 (06:40→23:22)
[2018-11-19] MEDS: BUDESONIDE 0.5 MG/2 ML INH IH SCH ×2 (06:40→18:46)
[2018-11-19 07:43] VITALS: BP 127/78
[2018-11-19] MEDS ORDERED: NON-FORMULARY MEDICATION 1 EACH (Nicotine (Nicotine Patch) 1 EACH) TD SCH (09:00)
[2018-11-19] MEDS: **HM** VIT D3 5000 UNITS PO SCH (09:00)
[2018-11-19] MEDS: PANTOPRAZOLE SODIUM 40 MG TABLET.DR PO SCH (09:13)
[2018-11-19] MEDS: LACTOBACILLUS RHAMNOSUS GG 1 EACH CAP.SPRINK PO SCH ×2 (09:13→22:46)
[2018-11-19] MEDS: FUROSEMIDE 10 MG/ML 4ML VIAL IVP SCH ×2 (09:13→22:49)
[2018-11-19] MEDS: PREDNISONE 5 MG TABLET PO SCH (09:13)
[2018-11-19] MEDS: DOCUSATE SODIUM 100 MG CAP PO SCH ×2 (09:13→22:47)
[2018-11-19] MEDS: CARVEDILOL 3.125 MG TABLET PO SCH ×2 (09:14→22:48)
[2018-11-19] MEDS: MONTELUKAST SODIUM 10 MG TAB PO SCH (09:15)
[2018-11-19 11:23] VITALS: BP 97/68
--- NOTE | 2018-11-19 13:40 | NUR ---
HYPOKALEMIA REPLACING PER POTASSIUM PROTOCOL. INSTRUCTED ON IMPORTANCE OF POTASSIUM LEVEL WITHIN NORMAL PARAMETERS FOR OPTIMUM CARDIAC FUNCTION. VERBALIZED UNDERSTANDING.
[2018-11-19] MEDS: SIMETHICONE 80 MG TAB.CHEW PO SCH ×3 (14:04→22:47)
[2018-11-19 15:48] VITALS: BP 90/64
--- NOTE | 2018-11-19 16:07 | NUR ---
[facility] CONSULT PATIENT ASSESSED ORDERED: PATIENT PRESENTS WITH MULTIPLE OPEN WOUNDS TO BLE AND CA REMOVAL SITE TO LT CHEST WALL; [facility] RECOMMENDATIONS SUBMITTED Addendum: 11/19/18 at 1609 by JEROME MCCAIN LVN LVN W Amended: Links added.
[2018-11-19 19:34] VITALS: BP 119/79
[2018-11-20] VITALS (12 sets, daily range): BP systolic 71–115; BP diastolic 42–73
[2018-11-20] MEDS: LISINOPRIL 5 MG TABLET PO SCH ×2 (01:13→20:00)
[2018-11-20 05:02] LABS: CREATININE 1.1 mg/dL (0.5-1.5); POTASSIUM 3.7 mmol/L (3.5-5.1)
[2018-11-20] MEDS: ALBUTEROL SULFATE 0.083% 2.5 MG/3 ML INH IH SCH ×4 (06:41→23:27)
[2018-11-20] MEDS: BUDESONIDE 0.5 MG/2 ML INH IH SCH ×2 (06:41→18:51)
[2018-11-20] MEDS: SIMETHICONE 80 MG TAB.CHEW PO SCH ×3 (08:49→22:32)
[2018-11-20] MEDS: PREDNISONE 5 MG TABLET PO SCH (08:50)
[2018-11-20] MEDS: LACTOBACILLUS RHAMNOSUS GG 1 EACH CAP.SPRINK PO SCH ×2 (08:50→22:32)
[2018-11-20] MEDS: DOCUSATE SODIUM 100 MG CAP PO SCH ×2 (08:50→22:32)
[2018-11-20] MEDS: MONTELUKAST SODIUM 10 MG TAB PO SCH (08:50)
[2018-11-20] MEDS: **HM** VIT D3 5000 UNITS PO SCH (08:50)
[2018-11-20] MEDS: PANTOPRAZOLE SODIUM 40 MG TABLET.DR PO SCH (08:50)
[2018-11-20] MEDS ORDERED: FUROSEMIDE 40 MG TABLET PO SCH (09:00)
[2018-11-20] MEDS ORDERED: SODIUM CHLORIDE 0.9% 500ML 500 ML IV SCH (12:45)
[2018-11-20] MEDS ORDERED: SODIUM CHLORIDE 0.9% 1000ML 1,000 ML IV SCH (13:00)
--- NOTE | 2018-11-20 13:50 | NUR ---
MD NOTIFICATION DR WALTERS NOTIFIED OF PT'S BPs POST 500 NL NS BOLUS. NEW ORDERS RECEIVED.
[2018-11-20] MEDS ORDERED: CARVEDILOL 3.125 MG TABLET PO SCH (21:00)
[2018-11-20] MEDS: POTASSIUM CHLORIDE 20 MEQ ERTAB PO PRN (22:33)
[2018-11-21] MEDS ORDERED: POTASSIUM CHLORIDE 10 MEQ/TAB.SA PO ONE ×2 (00:34)
[2018-11-21 04:00] VITALS: BP 97/66
[2018-11-21 05:22] LABS: CREATININE 0.9 mg/dL (0.5-1.5); POTASSIUM 4.1 mmol/L (3.5-5.1)
[2018-11-21] MEDS: BUDESONIDE 0.5 MG/2 ML INH IH SCH (06:14)
[2018-11-21] MEDS: ALBUTEROL SULFATE 0.083% 2.5 MG/3 ML INH IH SCH ×2 (06:14→11:02)
[2018-11-21 07:38] VITALS: BP 96/60
[2018-11-21] MEDS: **HM** VIT D3 5000 UNITS PO SCH (09:00)
[2018-11-21] MEDS: MONTELUKAST SODIUM 10 MG TAB PO SCH (10:31)
[2018-11-21] MEDS: PANTOPRAZOLE SODIUM 40 MG TABLET.DR PO SCH (10:31)
[2018-11-21] MEDS: LACTOBACILLUS RHAMNOSUS GG 1 EACH CAP.SPRINK PO SCH (10:31)
[2018-11-21] MEDS: DOCUSATE SODIUM 100 MG CAP PO SCH (10:31)
[2018-11-21] MEDS: PREDNISONE 5 MG TABLET PO SCH (10:31)
[2018-11-21] MEDS: SIMETHICONE 80 MG TAB.CHEW PO SCH ×2 (10:34→12:48)
[2018-11-21 11:26] VITALS: BP 94/61
--- NOTE | 2018-11-21 15:08 | NUR ---
PT HAS BEEN DISCHARGED HOME. PATIENT HAS BEEN SEEN BY DR. WALTERS. HE DISCHARGED PATIENT, TO FOLLOW UP ON SATURDAY AND WITH SAME MEDICATIONS. NEW SCRIPT FOR COREG 3.125MG PO BID GIVEN TO PATIENT BY JAZMINE DOOLEY. INSTRUCTED ON S/S TO MONITOR FOR REGARDING HEART FAILURE. BOTH PATIENT AND SPOUSE VERBALIZED THAT THEY USED TO MONITOR HIS WT BEFORE BUT WILL RESTART AGAIN. INSTRUCTED ON A HEART HEALTHY DIET, LOW SALT. INSTRUCTED TO CALL MD OFFICE IF QUESTIONS OR CONCERNS ARISE. FOLLOW UP WITH DR. ROBISON IS FOR 12/08/18 AT 3PM. PT DISCHARGED WITH PICC LINE, WHICH IS CARED FOR BY DR. WALTERS'S OFFICE. LINES FLUSHED WITH 10ML SALINE, WITH BLOOD RETURN NOTED. PT ESCORTED BY SCOUT PCP VIA W/C. ALL BELONGINGS GATHERED Y SPOUSE. ALL INSTRUCTION GIVEN UTILIZING TEACH BACK.
[2018-11-21] MEDS ORDERED: CARVEDILOL 3.125 MG TABLET PO SCH (21:00)
== END 2018-11-21 15:08 | disposition home or self-care (01) | DRG 292 ==
LOC: EDH 12:42 → EDHIP 12:43 → 2AH 15:41
PROVIDERS: ADMIT Internal Medicine Hematology & Oncology; ATTEND Internal Medicine Hematology & Oncology
DX: I50.23 Acute on chronic systolic (congestive) heart failure (principal); I42.0 Dilated cardiomyopathy; J44.9 Chronic obstructive pulmonary disease, unspecified; F17.200 Nicotine dependence, unspecified, uncomplicated; I44.0 Atrioventricular block, first degree; I44.7 Left bundle-branch block, unspecified; Z51.5 Encounter for palliative care; Z66 Do not resuscitate; K21.9 Gastro-esophageal reflux disease without esophagitis; I95.9 Hypotension, unspecified; Z79.899 Other long term (current) drug therapy; Z92.21 Personal history of antineoplastic chemotherapy; Z92.3 Personal history of irradiation; Z99.81 Dependence on supplemental oxygen; Z85.038 Personal history of other malignant neoplasm of large intestine; Z85.118 Personal history of other malignant neoplasm of bronchus and lung; Z87.01 Personal history of pneumonia (recurrent); Z88.5 Allergy status to narcotic agent; Z88.8 Allergy status to other drugs, medicaments and biological substances
CPT/HCPCS: 36415; 71045; 80048; 80053; 82948; 83880; 85025; 85610; 85730; 94640; 94664; G0378; J1940; J2260; J7512